=== PATIENT | female | born 1995 | race Caucasian/White ===

== ENCOUNTER 2018-07-02 19:19 | Emergency (ER) | payer OTHER, MEDICAID, SELFPAY ==
[2018-07-02 19:27] VITALS: BP 110/72; PULSE 74; RESP 16; TEMP 36.9; O2SAT 99
--- NOTE | 2018-07-02 22:37 | PC.NURSE ---
called pt at 2019, no answer. called again at [id number] no answer.
== END 2018-07-02 23:11 | disposition left against medical advice (07) ==
PROVIDERS: Emergency Provider Emergency Medicine
DX: R10.9 Unspecified abdominal pain (principal); Z53.20 Procedure and treatment not carried out because of patient's decision for unspecified reasons
CPT/HCPCS: 93005; 99282